=== PATIENT | female | born 1960 | race Caucasian/White ===

== ENCOUNTER 2016-11-02 20:05 | Emergency (ER) | payer OTHER ==
--- NOTE | 2016-11-02 20:12 | EDPRACDOC ---
- General Information Stated Complaint: LEFT KNEE Time Seen by Provider: 11/02/16 20:10 Information Source: Patient Mode of Arrival: Car Home Medications: Home Medications Multivitamin [Multiple Vitamins] 1 each PO DAILY 12/28/14 Trazodone HCl [Desyrel] 50 mg PO QHS PRN 12/28/14 Oxymorphone HCl [Opana ER] 10 mg PO BID 11/02/16 Allergies/Adverse Reactions: Allergies Allergy/AdvReac Type Severity Reaction Status Date / Time acetaminophen [From Tylox] Allergy Nausea/Vomi Verified 11/02/16 20:23 ting aspirin Allergy Nausea only Verified 11/02/16 20:23 etodolac [From Lodine] Allergy Nausea/Vomi Verified 11/02/16 20:23 ting oxycodone HCl [From Tylox] Allergy Nausea/Vomi Verified 11/02/16 20:23 ting - History of Present Illness Onset: TODAY HPI: PT C/O LEFT KNEE PAIN AFTER FALLING ON STEPS. HAS ABRASION TO ANTERIOR LEFT KNEE WITH SWELLING. 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 negative: Fever, Chills, Weakness, Fatigue, Loss of Appetite Eyes: No Symptoms Reported. negative: Redness, Blurred Vision, Double Vision, Discharge, Pain, Light Sensitive, Photophobia Ears: No Symptoms Reported. negative: Pain, Hearing Loss, Drainage, Ear Pulling Throat: No Symptoms Reported. negative: Pain, Swelling Nose: No Symptoms Reported. negative: Congestion, Bleeding, Discharge, Injection, Swelling, Deformity, Ecchymosis, Tender, Abrasion, Laceration Mouth: No Symptoms Reported. negative: Pain, Drooling Respiratory: No Symptoms Reported. negative: Cough, Brassy Cough, Barky Cough, Shortness of Breath, Wheezing, Hemoptysis Cardiovascular: No Symptoms Reported. negative: Chest Pain, Palpitations, Syncope, Edema, Orthopnea, PND, Skin Mottling, Cyanosis Gastrointestinal: No Symptoms Reported. negative: Pain, Constipation, Nausea, Vomiting, Diarrhea, Melena, Formula Intolerance Genitourinary: No Symptoms Reported. negative: Dysuria, Hematuria, Frequency, Discharge, Bleeding, Testicular Pain, Neurological: No Symptoms Reported. negative: Headache, Dizziness, Seizure, Numbness, Weakness, Speech Difficulty, Gait Difficulty Musculoskeletal: Knee (LT ANTERIOR). negative: Arm, Ankle, Back, Chestwall, Elbow, Forearm, Femur, Foot, Hand, Hip, Leg, Neck, Pelvis, Ribs, Shoulder, Wrist Integumentary: No Symptoms Reported. negative: Itching, Rash, Bruising, Wound Allergic/Immunologic: No Symptoms Reported. negative: Hives, Itching Hematologic: No Symptoms Reported. negative: Lymphadenopathy, Easy Bruising, Easy Bleeding Endocrine: No Symptoms Reported. negative: Weight Gain, Weight Loss Psychiatric: No Symptoms Reported. negative: Anxiety, Depression, Hallucinations, Insomnia, Suicidal - Physical Exam Constitutional: No apparent distress, Alert (Awake) Oriented to: Time, Person, Place Last recorded Vital Signs: Oxygen Pulse Oxygen Saturation O2 Device Oxygen Flow Rate Fraction of Inspired Oxygen ( FIO2) - HEENT Head: Normal ( normocephalic) Eye Exam: Normal (PERRL, EOMI, Sclera white) Oropharynx: Normal (Pharynx:Moist without exudate,Gums-no swelling) Tympanic Membrane: Normal ENT EAC: Normal TMJ: Normal Nose: No Symptoms Reported (septum midline) Neck: Normal (FROM, trachea at midline) - Respiratory/Cardiovascular Respiratory: Normal - CTA (BBS clear to auscultation without adventitious sounds ) Cardiovascular: Normal (RRR without murmur, gallop or rub) - GI Auscultation: Normal (NABS) Palpation: Normal (Soft,No rebound or guarding, non distended) Tenderness: Non tender Luna's Sign: Negative - Bladder: Normal - Musculoskeletal Back: Normal (Non-Tender) Extremities: Normal (Normal tone, Pulses 2+ No cyanosis or edema, FROM) - Integumentary Skin: Normal, Warm, Dry Lymphatics: Normal (no adenopathy) - Neurologic Memory Impaired: Normal Motor Function: Normal (Normal tone, Pulses 2+ No cyanosis or edema, FROM) Cranial Nerve: Normal (CN II-X11 intact sensation, strength 5/5) Cerebellar: Normal Mood Description: Normal Perception: Normal ED Knee Problem Phys Exam - Musculoskeletal Knee: Swelling, Limited ROM, Moderate Tenderness (ANTERIOR LT PATELLA) Knee Ligaments: Other (UNABLE TO TEST DUE TO PAIN) Thigh: Normal Lower Leg: Normal Distal Function/Circulation: Normal - Integumentary Skin: Abrasion Lymphatics: Normal ED Procedures - Splinting LT KNEE Location: LT Pre-Made Type: knee immobilizer Pre-Proc Neuro Vasc Exam: normal Post-Proc Neuro Vasc Exam: normal Other Devices: Crutches - Differential Diagnosis Abrasion, Contusion, Meniscus Injury, Patella Fracture, Sprain - Diagnostic Imaging LT KNEE Image interpreted by: Radiologist IMPRESSION: Nondisplaced transverse fracture inferior pole of the patella with an associated joint effusion Decision Time to Discharge: 20:47 - Departure Disposition: Home Condition: Stable Final Diagnosis: Left patella fracture Qualifiers: Encounter type: initial encounter Fracture type: closed Fracture morphology: transverse Fracture alignment: nondisplaced Qualified Code(s): S82.035A - Nondisplaced transverse fracture of left patella, initial encounter for closed fracture Instructions: RICE: Routine Care for Injuries, Patellar Fracture (ED) Education/Counseling Given To: Patient Education/Counseling Given Regarding: Diagnosis, Treatment, Prognosis, Follow Up Referrals: None,No Provider [NonStaff] - One Week Yimi Tian MD [Staff Physician] - One Week Additional Instructions: RICE. RETURN FOR WORSE OR DIFFERENT SYMPTOMS.
[2016-11-02 20:24] VITALS: BP 144/66; PULSE 90; TEMP 98.6; BMI 17.2
[2016-11-02] MEDS ORDERED: ONDANSETRON HCL 4 MG ODT TAB PO ONE (20:26)
[2016-11-02] MEDS ORDERED: OXYCODONE HCL 5 MG TABLET PO ONE (20:26)
[2016-11-02] MEDS ORDERED: HYDROmorphone 1 MG INJECTION IM ONE (20:27)
--- NOTE | 2016-11-02 20:38 | DIRPT ---
CLINICAL DATA: The patient tripped on stairs today with a fall and left knee injury. Pain and swelling. Initial encounter. EXAM: LEFT KNEE - COMPLETE 4+ VIEW COMPARISON: None. FINDINGS: There is a transverse fracture through the inferior pole the patella. The fracture is nondisplaced. No other fracture is identified. Joint effusion is noted. No notable degenerative disease is seen. IMPRESSION: Nondisplaced transverse fracture inferior pole of the patella with an associated joint effusion Electronically Signed By: Blane Rondon M.D. On: 11/02/2016 20:35
== END 2016-11-02 21:03 | disposition home or self-care (01) ==
LOC: EDMC 20:05
DX: S82.035A Nondisplaced transverse fracture of left patella, initial encounter for closed fracture (principal); W10.9XXA Fall (on) (from) unspecified stairs and steps, initial encounter; F17.200 Nicotine dependence, unspecified, uncomplicated
CPT/HCPCS: 73564; 96372; 99282; J1170; 29505